=== PATIENT | female | born 1985 | race Caucasian/White ===

== ENCOUNTER → 2016-05-14 | Outpatient (CLI) | payer OTHER ==
[~2016-05-14] MED LIST: CALC625T35; CHOL1CAP57 PO; CYAN10005 PO; DOCU50CA2 PO; vitamin d PO
== END | disposition home or self-care (01) ==
LOC: C.PAPS 08:28
PROVIDERS: ATTEND Obstetrics & Gynecology
DX: Z12.4 Encounter for screening for malignant neoplasm of cervix (principal)

== ENCOUNTER → 2017-06-04 | Outpatient (CLI) | payer BC | END | disposition home or self-care (01) | LOC: C.PAPS 09:16 | PROVIDERS: ATTEND Obstetrics & Gynecology | DX: Z01.419 Encounter for gynecological examination (general) (routine) without abnormal findings (principal) ==

== ENCOUNTER → 2017-07-23 | Outpatient (CLI) | payer BC | END | disposition home or self-care (01) | LOC: C.LAB 15:04 | PROVIDERS: ATTEND Obstetrics & Gynecology | DX: Z34.81 Encounter for supervision of other normal pregnancy, first trimester (principal) ==

== ENCOUNTER → 2017-08-01 | Outpatient (CLI) | payer BC | END | disposition home or self-care (01) | LOC: C.LAB 10:22 | PROVIDERS: ATTEND Obstetrics & Gynecology | DX: O20.0 Threatened abortion (principal) ==

== ENCOUNTER → 2017-08-03 | Outpatient (CLI) | payer BC | END | disposition home or self-care (01) | LOC: C.LAB 10:20 | PROVIDERS: ATTEND Obstetrics & Gynecology | DX: O20.0 Threatened abortion (principal) ==

== ENCOUNTER → 2017-08-05 | Outpatient (CLI) | payer BC ==
--- NOTE | 2017-08-05 12:03 | DIAGNOSTIC IMAGING REPORT ---
LIMITED (US) (transabdominal and endovaginal scanning) CLINICAL HISTORY: 7 weeks . Severe abdominal pain. COMPARISON STUDY: No previous studies for comparison. FINDINGS: A single alive intrauterine gestation was visualized. A 4 mm yolk sac was identified. The heart rate was 142. The crown-rump length was 10 mm corresponding to an estimated postmenstrual age of 7 weeks and 1 day. The left ovary appeared normal. There is a 21 mm right ovarian corpus luteum. IMPRESSION: Single alive intrauterine gestation. The estimated postmenstrual age of 7 weeks and 1 day. Electronically signed by: Harshad Salas M.D. 08/05/2017 12:02 PM Dictated Date/Time: 08/05/2017 12:01 PM
== END | disposition home or self-care (01) ==
LOC: C.ULTRBC 11:20
PROVIDERS: ATTEND Obstetrics & Gynecology
DX: R10.9 Unspecified abdominal pain (principal); Z34.81 Encounter for supervision of other normal pregnancy, first trimester

== ENCOUNTER → 2017-10-09 | Outpatient (CLI) | payer BC ==
[2017-10-09 09:39] LABS: BASO % 0.1 %; BASO ABS # 0.01 K/uL (0-0.2); EOS % 3.6 %; EOS ABS # 0.26 K/uL (0-0.5); HEMATOCRIT 35.6 % (37-47); IG# 0.01 K/uL (0.00-0.02); LYMPH % 27.8 %; LYMPH ABS # 2.01 K/uL (1.2-3.4); MEAN CELL VOLUME 92.7 fL (80-100); MEAN CORPUSCULAR HEMOGLOBIN 31.3 pg (25-34); MEAN CORPUSCULAR HGB CONC 33.7 g/dl (32-36); MEAN PLATELET VOLUME 9.8 fL (7.4-10.4); MONO % 3.7 %; MONO ABS # 0.27 K/uL (0.11-0.59); NEUT % 64.7 %; NEUT ABS # 4.66 K/uL (1.4-6.5); PLATELET COUNT 209 K/uL (130-400); RED CELL DISTRIBUTION WIDTH CV 13.5 % (11.5-14.5); RED CELL DISTRIBUTION WIDTH SD 45.9 fL (36.4-46.3); WHITE BLOOD COUNT 7.22 K/uL (4.8-10.8)
== END | disposition home or self-care (01) ==
LOC: C.LAB 07:03
PROVIDERS: ATTEND Obstetrics & Gynecology
DX: Z34.82 Encounter for supervision of other normal pregnancy, second trimester (principal)

== ENCOUNTER 2018-03-20 07:42 | Inpatient (IN) ==
[2018-03-21] MEDS ORDERED: miSOPROStol 50 MCG TAB PO ONE ×2 (08:04→19:55)
[2018-03-21] MEDS ORDERED: PENICILLIN G POTASSIUM 3 MU in DEXTROSE 5% 100 ML IV PRN ×2 (08:10→23:01)
[2018-03-21 08:33] LABS: Hematocrit (blood only) 34.9 % (37-47); Hemoglobin 11.5 g/dL (12.0-16.0); Mean Corpuscular Volume 94.8 fL (80-100); Mean Platelet Volume 10.2 fL (7.4-10.4); Platelet Count 171 K/uL (130-400); RDW Coefficient of Variation 15.3 % (11.5-14.5); RDW Standard Deviation 53.1 fL (36.4-46.3); Red Blood Count 3.68 M/uL (4.2-5.4); White Blood Count 9.54 K/uL (4.8-10.8)
[2018-03-21] MEDS ORDERED: PENICILLIN G POTASSIUM 6 MU in DEXTROSE 5% 250 ML IV ONE (09:00)
[2018-03-21] MEDS: LACTATED RINGER'S 1,000 ML IV PRN (13:39)
[2018-03-21] MEDS ORDERED: miSOPROStol 50 MCG TAB PO STA (14:13)
[2018-03-21] MEDS ORDERED: LACTATED RINGER'S 1,000 ML IV SCH (15:15)
[2018-03-21] MEDS ORDERED: miSOPROStol 50 MCG TAB ONE (19:34)
[2018-03-21] MEDS ORDERED: LABETALOL HCL 100 MG TAB PO SCH (21:00)
[2018-03-22] MEDS ORDERED: LABETALOL HCL 100 MG TAB PO SCH (01:00)
[2018-03-22] MEDS ORDERED: BUTORPHANOL TARTRATE 1 MG/ML VIAL IV PRN (01:46)
[2018-03-22] MEDS ORDERED: ePHEDrine sulfate 50 MG/ML AMP ONE (02:41)
[2018-03-22] MEDS ORDERED: BUPIVACAINE 0.25% 30 ML VIAL ONE (02:41)
[2018-03-22] MEDS ORDERED: fentaNYL 2MCG/ML ROPIV 1.25MG/ML 100 ML BAG EPI ONE (02:41)
[2018-03-22] MEDS ORDERED: fentaNYL citrate 100 MCG/2 ML VIAL ONE (02:41)
[2018-03-22] MEDS: LACTATED RINGER'S 1,000 ML IV PRN (02:53)
[2018-03-22] MEDS ORDERED: OXYTOCIN 30 UNITS/500 ML BAG IV PRN ×2 (03:38→09:32)
[2018-03-22] MEDS ORDERED: LACTATED RINGER'S 1,000 ML IV PRN ×2 (03:38→03:48)
--- NOTE | 2018-03-22 03:44 | Anesthesiology Consultation ---
Date of Service March 22, 2018 Assessment & Plan Chart Review Chart Review: Acceptable Risk for Labor Epidural History Height/Weight Height: 5 ft 6 in Weight: 111.584 kg Allergies Allergy/AdvReac Type Severity Reaction Status Date / Time fluticasone AdvReac Headache Verified 03/21/18 08:05 [From Flovent Diskus] some adhesives AdvReac Unknown red puffy Uncoded 03/21/18 08:05 skin Medications Home Medications Medication Instructions Recorded Confirmed Last Taken PNV [id number]#95-ferrous fumarate-FA 1 tab PO DAILY 03/21/18 03/21/18 03/20/18 20:00 [] folic acid 1 mg PO DAILY 03/21/18 03/21/18 03/20/18 20:00 valacyclovir [Valtrex] 500 mg PO BID 03/21/18 03/21/18 03/20/18 20:00 Active Medications Generic Name Dose Route Start Last Admin Trade Name Freq PRN Reason Stop Dose Admin Lactated Ringer's 1,000 mls @ 999 mls/hr 03/21/18 08:04 03/22/18 02:53 Lr IV 04/20/18 08:03 999 mls/hr .Q1H1M PRN Administration (Pre-Anesthesia) Penicillin G Potassium 3 mu/ 106 mls @ 100 mls/hr 03/21/18 23:01 03/21/18 23: 53 Dextrose IV 03/31/18 23:00 Infused Q4H PRN Infusion Give until delivery Labetalol HCl 100 mg 03/22/18 01:00 03/22/18 01:11 Normodyne PO 04/21/18 00:59 100 mg Q12H JESUS Administration Past Medical History Medical History H/O wisdom tooth extraction Herpes genitalia Last outbreak in 11/2016- took Valtrex 500mg BID since 36 weeks SVT (supraventricular tachycardia) only with takes Labetaolol 100 mg PO BID Spontaneous vaginal delivery 02/07/2014 Past Surgical History Surgical History H/O exploratory laparotomy related to endometriosis. Hx laparoscopic cholecystectomy 03/09/13 Social History Smoking Status: Never smoker Do You Dip or Chew Tobacco: No Hx Alcohol Use: No Hx Substance Use: No substance use type: does not use Physical Exam Vital Signs Last Vital Signs Temp 36.8 C 03/21/18 22:59 Pulse 83 03/22/18 03:41 Resp 18 03/21/18 22:59 BP 104/68 03/22/18 03:41 Pulse Ox 96 03/22/18 03:40 Testing Laboratory Results 03/21/18 08:21
[2018-03-22] MEDS ORDERED: NALBUPHINE HCL INJ 10 MG/ML AMP IV PRN (03:48)
[2018-03-22] MEDS ORDERED: NALOXONE HCL 1 MG in SODIUM CHLORIDE 0.9% 1000ML 1,000 ML IV PRN (03:48)
[2018-03-22] MEDS ORDERED: NALOXONE HCL 0.4 MG/1 ML VIAL/CARP IV PRN (03:48)
[2018-03-22] MEDS ORDERED: ePHEDrine sulfate 50 MG/ML AMP IV PRN (03:48)
[2018-03-22] MEDS ORDERED: fentaNYL 2MCG/ML ROPIV 1.25MG/ML 100 ML BAG EPI PRN (03:48)
[2018-03-22] MEDS ORDERED: DiphenhydrAMINE HCL 50 MG/ML VIAL IV PRN (03:48)
[2018-03-22] MEDS ORDERED: PENICILLIN G POTASSIUM 3 MU in DEXTROSE 5% 100 ML IV PRN ×2 (03:48→06:55)
[2018-03-22] MEDS ORDERED: ONDANSETRON INJ 2 MG/ML 2 ML VIAL ONE (04:08)
[2018-03-22] MEDS ORDERED: ONDANSETRON INJ 2 MG/ML 2 ML VIAL IV PRN (04:21)
[2018-03-22] MEDS ORDERED: SUPERCREAM 0.870% 15 GM JAR EXT PRN (09:32)
[2018-03-22] MEDS ORDERED: DIPHTHERIA/TETANUS/PERTUSSIS 0.5 ML SYR/VIAL IM ONE (09:32)
[2018-03-22] MEDS ORDERED: HYDROCORTISONE ACETATE 25 MG SUPP PR PRN (09:32)
[2018-03-22] MEDS ORDERED: ACETAMINOPHEN W/CODEINE #3 1 TAB PO PRN (09:32)
[2018-03-22] MEDS ORDERED: OXYCODONE/ACETAMINOPHEN 5mg/325mg TAB PO PRN (09:32)
[2018-03-22] MEDS ORDERED: BISACODYL 10 MG SUPP PR PRN (09:32)
[2018-03-22] MEDS: LABETALOL HCL 100 MG TAB PO SCH ×2 (11:07→21:34)
--- NOTE | 2018-03-22 12:07 | Anesthesia Procedure Note ---
Date of Service March 22, 2018 Anesthesia Post Epidural Note Vital Signs Vital Signs: Temp Pulse Resp BP Pulse Ox 03/22/18 11:33 78 104/60 03/22/18 11:18 85 115/69 03/22/18 11:03 88 111/71 03/22/18 10:48 84 106/66 03/22/18 10:32 84 111/62 03/22/18 10:17 75 116/72 03/22/18 10:02 88 116/68 03/22/18 09:49 81 102/65 03/22/18 09:32 80 132/60 03/22/18 09:23 72 125/59 L 03/22/18 09:10 85 97 03/22/18 09:05 77 97 03/22/18 09:00 73 97 03/22/18 08:55 83 97 03/22/18 08:53 96 H 103/60 03/22/18 08:50 74 95 03/22/18 08:45 90 95 03/22/18 08:40 82 97 03/22/18 08:38 80 99/58 L 03/22/18 08:35 78 95 03/22/18 08:30 74 94 03/22/18 08:25 76 95 03/22/18 08:23 72 105/59 L 03/22/18 08:20 83 95 03/22/18 08:15 71 94 03/22/18 08:10 76 95 03/22/18 08:08 71 109/57 L 03/22/18 08:05 72 96 03/22/18 08:00 66 95 03/22/18 07:55 83 96 03/22/18 07:53 69 106/63 03/22/18 07:50 78 95 03/22/18 07:45 68 95 03/22/18 07:40 73 95 03/22/18 07:38 62 110/59 L 03/22/18 07:35 94 H 97 03/22/18 07:30 81 20 97 03/22/18 07:25 65 96 03/22/18 07:23 73 110/58 L 03/22/18 07:20 73 97 03/22/18 07:15 84 96 03/22/18 07:10 75 96 03/22/18 07:08 76 114/68 03/22/18 07:05 82 96 18 07:00 75 18 95 18 06:55 80 96 18 06:54 67 120/59 L 18 06:50 78 96 18 06:45 82 96 18 06:40 73 96 18 06:38 78 111/58 L 03/22/18 06:35 83 96 03/22/18 06:30 83 96 03/22/18 06:25 75 95 18 06:23 90 104/61 18 06:20 85 96 18 06:15 76 95 03/22/18 06:10 75 95 18 06:09 68 117/66 03/22/18 06:08 36.7 C 03/22/18 06:05 76 96 03/22/18 06:00 73 96 03/22/18 05:56 75 131/74 03/22/18 05:55 92 H 96 18 05:53 64 115/66 18 05:50 71 96 18 05:45 70 95 18 05:40 63 95 18 05:38 69 111/60 18 05:35 61 95 03/22/18 05:30 92 H 98 18 05:25 61 96 18 05:23 65 106/62 18 05:20 61 96 18 05:15 70 97 18 05:10 61 96 18 05:09 66 126/69 18 05:05 68 97 18 05:00 64 97 18 04:55 67 96 18 04:54 66 119/66 18 04:50 65 96 18 04:45 73 96 18 04:40 79 97 18 04:38 68 109/67 18 04:35 58 L 96 18 04:30 78 97 18 04:25 59 L 96 18 04:23 60 114/67 18 04:20 77 97 12/29/18 04:15 58 L 96 03/22/18 04:10 65 98 03/22/18 04:08 69 110/70 03/22/18 04:05 60 97 03/22/18 04:03 56 L 113/70 03/22/18 04:00 61 97 03/22/18 03:58 75 94 03/22/18 03:55 59 L 94 03/22/18 03:53 74 113/66 94 03/22/18 03:50 82 125/69 95 03/22/18 03:47 82 122/71 03/22/18 03:46 66 92 03/22/18 03:45 66 95 03/22/18 03:44 65 116/71 03/22/18 03:41 83 104/68 03/22/18 03:40 82 96 03/22/18 03:38 67 112/69 03/22/18 03:35 73 116/71 97 03/22/18 03:32 72 125/74 93 03/22/18 03:30 36.7 C 71 18 100 03/22/18 03:29 68 120/74 03/22/18 03:26 80 122/74 03/22/18 03:25 86 100 03/22/18 03:20 87 124/78 100 03/22/18 03:15 82 93 03/22/18 03:10 81 100 03/22/18 03:05 76 99 03/22/18 03:00 72 100 03/22/18 02:55 66 100 03/22/18 02:50 70 100 03/22/18 02:45 113 H 86 L 03/22/18 01:11 81 118/76 03/21/18 22:59 36.8 C 67 18 114/60 03/21/18 19:33 36.9 C 72 18 112/72 03/21/18 19:00 20 03/21/18 15:45 36.8 C 73 18 98/60 L Notes Mental Status: alert / awake / arousable Patient Amnestic to Procedure: Yes Nausea / Vomiting: adequately controlled Pain: adequately controlled Airway Patency, RR, SpO2: stable & adequate BP & HR: stable & adequate Hydration State: stable & adequate Neuraxial Anesthesia: sensory block resolved Anesthetic Complications: no major complications apparent and Pt Satisfied with anesthetic care Epidural: Removed without complications and With tip intact
[2018-03-22] MEDS: IBUPROFEN 600 MG TAB PO PRN ×3 (12:54→21:30)
[2018-03-22] MEDS: BENZOCAINE 20% AER SPR 82.5 GM CAN EXT PRN (12:55)
[2018-03-22] MEDS: ACETAMINOPHEN 325 MG TAB PO PRN ×2 (12:55→18:58)
[2018-03-22] MEDS: DOCUSATE SODIUM 100 MG CAP PO SCH (21:32)
[2018-03-23] MEDS: IBUPROFEN 600 MG TAB PO PRN ×4 (01:07→13:24)
[2018-03-23] MEDS: ACETAMINOPHEN 325 MG TAB PO PRN (01:08)
[2018-03-23 06:45] LABS: Hematocrit (blood only) 32.1 % (37-47); Hemoglobin 10.5 g/dL (12.0-16.0); Mean Corpuscular Hgb Conc 32.7 g/dL (32-36); Mean Corpuscular Volume 95.8 fL (80-100); Mean Platelet Volume 10.3 fL (7.4-10.4); Platelet Count 173 K/uL (130-400); RDW Coefficient of Variation 15.5 % (11.5-14.5); RDW Standard Deviation 53.4 fL (36.4-46.3); Red Blood Count 3.35 M/uL (4.2-5.4); White Blood Count 12.09 K/uL (4.8-10.8)
[2018-03-23] MEDS: DOCUSATE SODIUM 100 MG CAP PO SCH (08:38)
[2018-03-23] MEDS: LABETALOL HCL 100 MG TAB PO SCH (08:39)
[2018-03-23] MEDS ORDERED: PRENATAL VITAMIN 1 TAB PO SCH (09:00)
[2018-03-23] MEDS ORDERED: FERROUS SULFATE 325 MG TAB PO SCH (09:00)
--- NOTE | 2018-03-23 11:16 | Obstetrical Progress Note ---
Date of Service March 23, 2018 Physical Exam 2 Vital Signs (Past 24 Hours): Last Vital Signs Temp 36.7 C 03/23/18 08:23 Pulse 69 03/23/18 08:23 Resp 20 03/23/18 08:23 BP 122/58 L 03/23/18 08:23 Pulse Ox 98 03/22/18 12:15 Physical Exam: abdomen soft and non tender vaginal bleeding scant to moderate no calf tenderness ambulating well patient requests discharge
[2018-03-23] MEDS: BENZOCAINE 20% AER SPR 82.5 GM CAN EXT PRN (15:02)
[2018-03-23] MEDS ORDERED: BISACODYL 5 MG TABEC PO SCH (20:00)
--- NOTE | 2018-03-24 07:54 | Operative Report ---
DATE OF OPERATION: 03/22/2018 DELIVERY NOTE The patient is a 32-year-old 2, para 2, blood type is O positive, rubella immune, vaginal beta strep positive, was brought in. She was also on labetalol 100 mg twice a day for symptomatic supraventricular tachycardia, brought in for induction at the patient's request. Estimated weight over 8 pounds. She was over 39 weeks. She was given Cytotec 50 mcg 3 times spaced out about every 5-6 hours, started to go into strong labor. Membranes ruptured spontaneously. Head came down, cervix effaced, requested and received epidural, obtained good pain relief. After the epidural, contractions spaced out. She was started on Pitocin. With Pitocin, she developed a good pattern, went to full dilatation about 20 minutes, pushed out a live female infant via direct occiput anterior position over an intact perineum, just some short episodes of bradycardia towards the end which resolved spontaneously. Nuchal cord x2 presented as tight, had to be cut and then unwrapped around the head. Infant suctioned through the mouth and the nose. Shoulders delivered without difficulty. Cord blood was taken with IV Pitocin running. Placenta was removed intact. Inspection of the perineum revealed a first degree laceration of the perineum. This was repaired anatomically with heavy Vicryl. Vaginal mucosa was approximated out beyond the hymenal ring with a running Vicryl. Then 3 deep sutures of heavy Vicryl was used to approximate the perineal body and bolster the anterior portion of the rectal sphincter capsule. A deep suture used to approximate the bulbocavernosus muscle. A running subcuticular suture was used to approximate the perineal skin edges. Following this, vaginal exam including rectovaginal examination revealed no hematoma formation. No sponges in the vagina. No stitches through the rectum. Estimated blood loss 300 mL. Apgars were 8 and 9 respectively my estimation. The patient tolerated the procedure well. I attest to the content of the Intraoperative Record and any orders documented therein. Any exception s are noted below.
== END 2018-03-23 15:50 | disposition home or self-care (01) | DRG 806 ==
LOC: EDSTATUS 07:42 → 4S1 03-21 07:40 → 4S2 03-22 12:25